=== PATIENT | female | born 1995 | race Caucasian/White ===

== ENCOUNTER 2018-10-11 17:54 | Inpatient (IN) | payer OTHER ==
[2018-10-11] MEDS ORDERED: Misoprostol 200 MCG TAB PR PRN (18:05)
[2018-10-11] MEDS ORDERED: NS / Oxytocin 40 units/1000ml 1,000 ML IV PRN (18:05)
[2018-10-11] MEDS ORDERED: Butorphanol Tartrate 1 MG/ML VIAL SLOW IVP PRN (18:05)
[2018-10-11] MEDS ORDERED: Ondansetron PF 4 MG/2 ML Vial IVP PRN (18:05)
[2018-10-11] MEDS ORDERED: Ibuprofen 800 MG TAB PO PRN (18:05)
[2018-10-11] MEDS ORDERED: HYDROcodone/Acetaminophen 5/325 mg Tablet PO PRN (18:05)
[2018-10-11] MEDS ORDERED: hydrALAZINE 20 MG/ML VIAL SLOW IVP PRN (18:05)
[2018-10-11] MEDS ORDERED: Promethazine HCl 25 MG/ML VIAL IM PRN (18:05)
[2018-10-11] MEDS ORDERED: Lidocaine 1% (PF) 30 ML VIAL SC PRN (18:05)
[2018-10-11] MEDS ORDERED: Acetaminophen 500 MG TAB PO PRN (18:05)
[2018-10-11 18:46] VITALS: BMI 42.0
[2018-10-11 19:01] LABS: Mean Corpuscular HGB CONC 33.4 g/dL (32.0-36.0); Mean Corpuscular Hemoglobin 29.7 pg (27.0-31.0); Mean Corpuscular Volume 88.9 fL (78.0-98.0); Mean Platelet Volume 10.5 fL (7.4-10.4); Platelet Count 151 thou/uL (130-400); RBC Distribution Width 12.7 % (11.5-14.5); White Blood Cell (WBC) Count 11.8 thou/uL (4.8-10.8)
[2018-10-11 19:45] LABS: Syphilis Antibody Nonreactive (Nonreactive); Syphilis Antibody Index 0.05 S/CO (<1.00 Non-Reactive)
[2018-10-11 19:46] LABS: HBSAg Index 0.29 S/CO (0-0.99); Hep B Surf Ag Non-Reactive S/CO (NonReactive)
[2018-10-11] MEDS: Misoprostol 100 MCG TAB VAG SCH (19:55)
[2018-10-11 21:00] LABS: ALT (SGPT) 13 U/L (8-55); AST (SGOT) 22 U/L (5-34); Albumin 3.5 g/dL (3.5-5.0); Alkaline Phosphatase 206 U/L (40-150); Anion Gap 16 mmol/L (10-20); BUN (Urea Nitrogen) 10 mg/dL (7.0-18.7); Bilirubin, Total 0.4 mg/dL (0.2-1.2); Calc. Creatinine Clearance 228 mL/min (70-130); Calcium 9.3 mg/dL (7.8-10.44); Carbon Dioxide 18 mmol/L (22-29); Chloride 106 mmol/L (98-107); Estimated GFR-MDRD Greater than 90; Glucose 98 mg/dL (70-105); Potassium 4.2 mmol/L (3.5-5.1); Protein, Total 6.5 g/dL (6.0-8.3); Sodium 136 mmol/L (136-145)
[2018-10-11] MEDS ORDERED: Labetalol HCl 100 MG/20 ML VIAL ONE (21:03)
[2018-10-11] MEDS ORDERED: Labetalol HCl 100 MG/20 ML VIAL SLOW IVP PRN ×2 (21:05→21:06)
[2018-10-11] MEDS ORDERED: Labetalol HCl 100 MG/20 ML VIAL SLOW IVP SCH (21:15)
[2018-10-11 23:05] LABS: Creatinine, Urine 80.14 mg/dL (47-110)
[2018-10-12] MEDS: NS w/ Oxytocin 10 units 500 ML IV SCH ×2 (00:03→22:18)
[2018-10-12] MEDS: Lactated Ringer's 1,000 ML IV SCH ×4 (02:44→23:17)
[2018-10-12] MEDS: Misoprostol 100 MCG TAB VAG SCH ×6 (07:40→22:27)
[2018-10-12] MEDS ORDERED: Fentanyl 4 mcg/Bup 0.1% Cadd 100 ML ONE (10:57)
[2018-10-12] MEDS ORDERED: Bupivacaine HCl 0.5%/Epinephrine 1:200,000/PF 30 ml Vial ONE (11:11)
[2018-10-12] MEDS ORDERED: Lidocaine 1.5%/Epinephrine 1:200,000 5 ML AMPUL IJ ONE (11:24)
[2018-10-12] MEDS ORDERED: Lactated Ringer's 500 ML IV PRN (11:36)
[2018-10-12] MEDS ORDERED: ePHEDrine/0.9% NaCl/PF SYRINGE 50 mg/10 ml SLOW IVP PRN (11:36)
[2018-10-12] MEDS ORDERED: Promethazine HCl 25 MG/ML VIAL IM PRN ×2 (11:36→20:01)
[2018-10-12] MEDS ORDERED: Naloxone HCl 0.4 mg/ml Vial IVP PRN ×4 (11:36→20:01)
[2018-10-12] MEDS ORDERED: Acetaminophen 325 MG TAB PO PRN (11:36)
[2018-10-12] MEDS ORDERED: Ondansetron PF 4 MG/2 ML Vial IVP PRN ×2 (11:36→20:01)
[2018-10-12] MEDS ORDERED: diphenhydrAMINE 50 MG/ML VIAL IVP PRN ×2 (11:36→20:01)
[2018-10-12] MEDS ORDERED: Fentanyl 4 mcg/Bupivacaine 0.1% Cassette 100 ML EPIDURAL SCH (11:45)
[2018-10-12] MEDS ORDERED: Communication Order-Pharmacy FS SCH ×2 (11:45→20:15)
[2018-10-12] MEDS ORDERED: diphenhydrAMINE 50 MG/ML VIAL ONE (14:28)
[2018-10-12] MEDS ORDERED: Ondansetron PF 4 MG/2 ML Vial ONE ×2 (16:41→19:04)
[2018-10-12] MEDS ORDERED: PHENYLEPHRINE-NS 100 MCG/ML 10 ML SYRINGE ONE (16:41)
[2018-10-12] MEDS ORDERED: Ketorolac Tromethamine 30 MG/ML VIAL ONE ×2 (16:41→19:04)
[2018-10-12] MEDS ORDERED: Bicitra 30 ML UDCUP ONE (18:13)
[2018-10-12] MEDS ORDERED: Azithromycin 500 MG VIAL ONE (18:13)
--- NOTE | 2018-10-12 18:13 | PDOC.LDPN ---
Labor & Delivery Progress Note - Subjective Subjective: comfortable - Objective Uterine fundus: non tender Dilation: 4 Effacement: 75% Station: -1 FHT: category 1 AROM: clear fluid (Patient has remained unchanged in cervical dilation and descent at 4/75/-1 for 6 hours..MVU'shave been >250 all this time.) IUPC placed: yes - Assessment (1) Failure to progress in first stage of labor Code(s): [id number] - Current Visit: Yes Status: Acute
[2018-10-12] MEDS ORDERED: Azithromycin 500 MG in Sodium Chloride 0.9% 250 ML 250 ML IVPB SCH (18:30)
[2018-10-12] MEDS ORDERED: CEFAZOLIN 2 GM in Premix Bag 1 BAG IVPB ONE (18:30)
[2018-10-12] MEDS ORDERED: Bicitra 30 ML UDCUP PO SCH (18:30)
[2018-10-12] MEDS ORDERED: MORPHINE 5 MG/10 ML PF VIAL ONE (19:03)
[2018-10-12] MEDS ORDERED: Phenylephrine HCL 10 MG/ML VIAL ONE (19:04)
[2018-10-12] MEDS ORDERED: Dexamethasone 4 mg/ml Vial ONE (19:04)
[2018-10-12] MEDS ORDERED: Oxytocin 10 UNITS/ML VIAL ONE (19:04)
[2018-10-12] MEDS ORDERED: ePHEDrine/0.9% NaCl/PF SYRINGE 50 mg/10 ml ONE (19:04)
--- NOTE | 2018-10-12 19:47 | PDOC.OPDEL ---
OB Operative/Delivery Note Delivery Dr/Surgeon: Rosaura Assist: Rafa Pre-Delivery Diagnosis: arrest of dilation, medically indicated induction Procedure/Post Delivery Dx: primary low transverse CS Weeks gestation: 39 Anesthesia: epidural - Findings A Sex: female Weight: 6 lb 9 oz - 1 min: 9 - 5 min: 9 - Additional Findings/Plan Placenta delivered: manual removal (EBL 500 ml.. Thin umbilical. Nuchal cord x 2 with body cord. placenta to pathology.)
[2018-10-12] MEDS ORDERED: Bisacodyl 10 MG SUPP PR PRN (19:49)
[2018-10-12] MEDS ORDERED: Adacel (T-DAP) 0.5 ML SYRINGE IM ONE (19:49)
[2018-10-12] MEDS ORDERED: hydrALAZINE 20 MG/ML VIAL SLOW IVP PRN (19:49)
[2018-10-12] MEDS ORDERED: Lanolin Ointment 7 GM TUBE TOP PRN (19:49)
[2018-10-12] MEDS ORDERED: L&D-Morphine 4 MG/ML VIAL SLOW IVP PRN (20:01)
[2018-10-12] MEDS ORDERED: Ketorolac Tromethamine 30 MG/ML VIAL IVP PRN (20:01)
[2018-10-12] MEDS ORDERED: Promethazine HCl 25 MG SUPP PR PRN (20:01)
[2018-10-12] MEDS ORDERED: Naloxone HCl 0.4 mg/ml Vial IV PRN (20:01)
[2018-10-12] MEDS ORDERED: HYDROmorphone 2 MG/ML VIAL SLOW IVP PRN (20:01)
[2018-10-12] MEDS ORDERED: Meperidine HCl/PF 25 MG/ML VIAL SLOW IVP PRN (20:01)
[2018-10-12] MEDS ORDERED: Ondansetron HCl/PF 4 MG/2 ML Vial IVP PRN (20:01)
[2018-10-12] MEDS ORDERED: Ketorolac Tromethamine 30 MG/ML VIAL IVP SCH (20:15)
[2018-10-12] MEDS ORDERED: Ibuprofen 800 MG TAB PO SCH (22:00)
[2018-10-12] MEDS: Docusate Calcium (SURFAK) 240 MG CAP PO SCH (22:18)
[2018-10-12] MEDS ORDERED: Acetaminophen 1,000 MG in Premix Bag 1 BAG IVPB SCH (23:15)
--- NOTE | 2018-10-13 00:33 | OP ---
DATE OF PROCEDURE: 10/12/2018 PREOPERATIVE DIAGNOSES: 1. 23-year-old white female, G1, P0, at 39 to 40 weeks gestation, status post labor induction. 2. Mild gestational hypertension. 3. Failure to progress, 4 cm, 75% effaced, -1 station. POSTOPERATIVE DIAGNOSES: 1. 23-year-old white female, G1, P0, at 39 to 40 weeks gestation, status post labor induction. 2. Mild gestational hypertension. 3. Failure to progress, 4 cm, 75% effaced, -1 station. PROCEDURE PERFORMED: Primary low transverse section without extension. MECHANISM ASSEMBLER SURGEON: Bhavana Craig MD ANESTHESIA: Epidural. QUANTITATIVE BLOOD LOSS: 560 mL. ANTIBIOTICS: 2 g Ancef and 500 mg of Zithromax on-call to OR. COMPLICATIONS: None. COUNTS: Correct x2. FINDINGS: 1. Vigorous female , vertex presentation, Apgars 9 and 9 with weight 6 pounds 9 ounces. 2. Nuchal cord x2 with body cord noted around the with a thin umbilical cord with minimal Lalo's jelly noted. 3. Normal-appearing fallopian tubes, uterus, and ovaries. 4. Clear urine present in Sanchez catheter postprocedure. PATHOLOGY: Placenta. DISPOSITION: Recovery room, stable. DESCRIPTION OF PROCEDURE: The patient previously received informed consent in regard to surgery. She was taken back to the operating room, where she received a dosing of her epidural. She was placed in the supine position, prepped and draped in the usual fashion. A Pfannenstiel incision was made through the lower abdomen, was carried down the fascia. Fascia was nicked in the midline. Fascial incision was extended bilaterally using curved Sears scissors. The rectus fascia was then dissected superiorly and inferiorly off the rectus muscle bellies. The rectus muscle was divided in midline. Peritoneal cavity was entered. Peritoneal incision was extended. Iván O retractor large was placed. A 2 cm hysterotomy incision was then made above the vesicouterine reflection and this was extended via finger fractionation. The baby was delivered in the vertex presentation. Mouth and nares of the were bulb suctioned on the abdomen. The cord was doubly clamped and cut. The baby was handed to the pediatric team in attendance. Usual cord blood was obtained. Placenta was manually extracted and sent to Pathology due to umbilical cord. The uterus was curetted of remaining placental fragments with a dry laparotomy sponge. Hysterotomy incision was inspected and no extensions were noted. It was closed in running locking fashion double-layer closure with #1 Monocryl suture. Hemostasis was confirmed. Pelvis again was irrigated and suctioned. Hemostasis was confirmed. The Iván O retractor was removed. Again, hemostasis in the abdomen and pelvis were confirmed. The rectus muscle bellies were inspected and noted to be hemostatic prior to fascial closure. The fascia was closed with 0 PDS suture x2 in a running continuous fashion. Subcutaneous tissue was irrigated and hemostatic. It was approximated with a running 2-0 chromic suture. The skin was then approximated with damian. Surgery was terminated with no anesthetic or surgical complications. Job ID: [id number]
[2018-10-13] MEDS ORDERED: Acetaminophen 500 MG TAB PO PRN (05:00)
[2018-10-13] MEDS: Lactated Ringer's 1,000 ML IV SCH ×3 (05:14→21:50)
[2018-10-13 05:49] LABS: Hemoglobin 10.5 g/dL (12.0-16.0); Mean Corpuscular HGB CONC 32.5 g/dL (32.0-36.0); Mean Corpuscular Hemoglobin 29.6 pg (27.0-31.0); Mean Corpuscular Volume 91.2 fL (78.0-98.0); Mean Platelet Volume 9.6 fL (7.4-10.4); Platelet Count 127 thou/uL (130-400); RBC Distribution Width 12.7 % (11.5-14.5); Red Blood Cell (RBC) Count 3.55 mill/uL (4.20-5.40); White Blood Cell (WBC) Count 18.1 thou/uL (4.8-10.8)
[2018-10-13] MEDS: Prenatal Vitamin 1 TAB PO SCH (07:42)
[2018-10-13] MEDS: Docusate Calcium (SURFAK) 240 MG CAP PO SCH ×2 (07:43→21:48)
[2018-10-13] MEDS: HYDROcodone/Acetaminophen 5/325 mg Tablet PO PRN ×3 (07:43→21:48)
--- NOTE | 2018-10-13 07:52 | PDOC.PP ---
Post Progress Note Post Day #: 0-1 PO intake tolerated: yes Flatus: yes Ambulation: yes Vital Signs (12 hours) Temp Pulse Resp BP BP Pulse Ox 10/13/18 07:49 98.2 F 80 20 90/55 L 95 10/13/18 03:42 98.6 F 71 16 90/52 L 10/13/18 00:10 97.7 F 80 16 100/58 L 10/12/18 23:10 98.2 F 86 16 100/58 L 10/12/18 22:10 97.7 F 86 16 95/50 L Weight Weight 285 lb - Physical Examination Abdominal: + bowel sounds (incision clean and dry..), lochia, no distention, appropriately TTP Result Diagrams: 10/13/18 05:29 10/11/18 18:45 Additional Labs: Post Labs Blood Type A POSITIVE 10/11/18 19:15 Hep Bs Antigen Non-Reactive S/CO (NonReactive) 10/11/18 18:45 (1) Failure to progress in first stage of labor Code(s): [id number] - Status: Acute - Assessment/Plan Doing well post op day0-1 from primary c/s for failure to progress. Hemodynamically stable. Routine care...
[2018-10-13] MEDS ORDERED: HYDROcodone/Acetaminophen 5/325 mg Tablet PO PRN (08:15)
--- NOTE | 2018-10-13 10:01 | OP ---
DATE OF PROCEDURE: 10/12/2018 ADDENDUM: I was present and scrubbed to assist the uncomplicated primary low-transverse with Dr. Earnestine Kaplan. Please see her note for full details. Job ID: [id number]
[2018-10-13] MEDS ORDERED: Bupivacaine PF 0.5% 30 ML VIAL ONE (11:11)
[2018-10-13] MEDS: Simethicone Chewable 80 MG TAB PO PRN (21:47)
[2018-10-13] MEDS: Ibuprofen 800 MG TAB PO SCH (21:48)
[2018-10-14] MEDS: Lactated Ringer's 1,000 ML IV SCH ×2 (05:58→12:39)
[2018-10-14] MEDS: Simethicone Chewable 80 MG TAB PO PRN (05:59)
[2018-10-14] MEDS: Ibuprofen 800 MG TAB PO SCH (05:59)
--- NOTE | 2018-10-14 07:42 | PDOC.PP ---
Post Progress Note Post Day #: 2 Subjective: Would like to go home if baby can. PO intake tolerated: yes Flatus: yes Ambulation: yes Vital Signs (12 hours) Temp Pulse Resp BP Pulse Ox 10/14/18 04:12 97.9 F 83 18 98/66 10/14/18 00:15 97.9 F 89 18 106/58 L 10/13/18 20:17 98.0 F 99 18 116/56 L 99 Weight Weight 285 lb Result Diagrams: 10/13/18 05:29 10/11/18 18:45 Additional Labs: Post Labs Blood Type A POSITIVE 10/11/18 19:15 Hep Bs Antigen Non-Reactive S/CO (NonReactive) 10/11/18 18:45 (1) Failure to progress in first stage of labor Code(s): [id number] - Status: Acute - Assessment/Plan Doing well. Possible discharge later today if baby is released. Lata out Monday 10/16.. 6 week post .
[2018-10-14] MEDS: Docusate Calcium (SURFAK) 240 MG CAP PO SCH (08:22)
[2018-10-14] MEDS: Prenatal Vitamin 1 TAB PO SCH (08:22)
[2018-10-14 11:49] VITALS: BP 122/64; TEMP 98
[2018-10-14] MEDS: HYDROcodone/Acetaminophen 5/325 mg Tablet PO PRN (12:33)
== END 2018-10-14 13:25 | disposition home or self-care (01) | DRG 788 ==
LOC: L&D 17:54 → 3SW 10-12 22:03
PROVIDERS: ADMIT Obstetrics & Gynecology; ATTEND Obstetrics & Gynecology
PROC: 10D00Z1 Extraction of Products of Conception, Low, Open Approach (ICD-10-PCS; principal; 2018-10-12)
PROC: 10907ZC Drainage of Amniotic Fluid, Therapeutic from Products of Conception, Via Natural or Artificial Opening (ICD-10-PCS; 2018-10-12)
DX: O62.0 Primary inadequate contractions (principal); O69.81X0 Labor and delivery complicated by cord around neck, without compression, not applicable or unspecified; O13.4 Gestational [pregnancy-induced] hypertension without significant proteinuria, complicating childbirth; Z3A.39 39 weeks gestation of pregnancy; Z37.0 Single live birth
CPT/HCPCS: 36415; 51702; 80053; 82570; 84156; 85027; 86780; 86850; 86900; 86901; 87340; 88307; 90715; J0131; J0360; J0456; J0595; J0670; J1100; J1200; J1885; J2274; J2370; J2405; J2590; J3490; S0020

== ENCOUNTER 2020-01-21 07:48 | Emergency (ER) | payer OTHER ==
[2020-01-21] MEDS ORDERED: Ketorolac Tromethamine 30 MG/ML VIAL ONE (08:15)
[2020-01-21 09:28] LABS: Pregnancy Test - Urine (BHCG) Negative (Negative); Pregu Control Background? CLEAR/WHITE (CLR/WHITE); Pregu Control Bar Appear? YES (CONTROL BAR); Specific Gravity 1.004 (1.002-1.036)
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
== END 2020-01-21 10:12 | disposition home or self-care (01) ==
LOC: ERS 07:48
DX: M54.5 Low back pain (principal); V69.9XXA Occupant (driver) (passenger) of heavy transport vehicle injured in unspecified traffic accident, initial encounter
CPT/HCPCS: 72131; 81025; 96372; J1885